=== PATIENT | male | born 1960 | race African-American/Black ===

== ENCOUNTER 2016-06-09 20:46 | Emergency (ER) | payer MEDICARE ==
[2016-06-09 20:57] VITALS: BP 157/83; PULSE 94; TEMP 98; BMI 37.9
[2016-06-09] MEDS ORDERED: METHYLPREDNISOLONE 125 MG/2 ML VIAL IM ONE (21:05)
[2016-06-09] MEDS ORDERED: ALBUTEROL 0.083% 3 ML NEB NEB ONE (21:06)
[2016-06-09] MEDS ORDERED: Albuterol/Ipratropium Neb 3 ML NEB NEB ONE (21:06)
[2016-06-09] MEDS ORDERED: ALBUTEROL 6.7 GM MDI INH ONE (21:06)
--- NOTE | 2016-06-09 21:22 | EDPRACDOC ---
- General Information Chief Complaint: Adult Asthma Stated Complaint: DIFFICULTY BREATHING Time Seen by Provider: 06/09/16 20:59 Information Source: Patient Mode Of Arrival: Car Home Medications: Home Medications Diltiazem HCl [Diltiazem ER] 120 mg PO DAILY 03/20/16 Insulin Glargine [Lantus Pen] 12 units SQ HS 03/20/16 Lisinopril [Prinivil] 5 mg PO DAILY 03/20/16 Metoprolol Tartrate [Lopressor] 25 mg PO BID 03/20/16 Albuterol Sulfate Nebs [Proventil, Ventolin] 3 ml NEB Q4 #60 nebu 06/09/16 Albuterol Sulfate [Ventolin Hfa] 2 puff INH Q6H PRN #1 hfa.aer.ad 06/09/16 Azithromycin [Zithromax] 250 mg PO DAILY #6 tablet 06/09/16 Prednisone [Sterapred 5 mg/6 day Uni-Pack] 21 tab PO DIR #1 pack 06/09/16 Allergies/Adverse Reactions: Allergies Allergy/AdvReac Type Severity Reaction Status Date / Time No Known Allergies Allergy Unverified 06/09/16 20:57 - History of Present Illness Onset: SEVERAL DAYS HPI: PT PRESENTS DUE TO SHOB AND WHEEZING. PT HAS PMH OF COPD AND ASTHMA. Shortness of Breath: Moderate Relevant History: Reports: Asthma, COPD Cough: Reports: Non-productive Rhinorrhea: Reports: Clear Ear Symptoms: Reports: None SOB Worsens with: Reports: Exertion, Movement, Coughing, Lying Flat, Position SOB Improves with: Reports: Sitting up, Rest, Position Recently treated infections:: Denies: Otitis media, Pneumonia, URI ED Past Medical History - History Reviewed Yes Nurses notes reviewed and agree except as marked - Patient Medical History Cardiac History: Reports: Hypertension Respiratory History: Reports: Asthma, COPD Psychological History: Reports: Depression Systemic History: Reports: Diabetes - Social Medical History Smoking Status: Never smoker EDM Review of Systems - Review of Systems ROS Negative Except as Marked: Yes All systems reviewed and were negative except as marked - Physical Exam Constitutional: Alert Oriented to: Time, Person, Place Last recorded Vital Signs: Last Vital Signs Temp 98 F 06/09/16 20:52 Pulse 94 06/09/16 20:52 Resp 24 06/09/16 21:05 BP 157/83 06/09/16 20:52 Pulse Ox 98 06/09/16 20:52 Oxygen Pulse Oxygen Saturation 98 O2 Device Oxygen Flow Rate Fraction of Inspired Oxygen ( FIO2) - HEENT Head: Normal ( normocephalic) Eye Exam: Normal (PERRL, EOMI, Sclera white) Oropharynx: Normal (Pharynx:Moist without exudate,Gums-no swelling) Tympanic Membrane: Normal Nose: No Symptoms Reported (septum midline) Neck: Normal (FROM, trachea at midline) - Respiratory/Cardiovascular Respiratory: Tachypnea, Wheezes Cardiovascular: Normal (RRR without murmur, gallop or rub) - GI Auscultation: Normal (NABS) Palpation: Normal (Soft,No rebound or guarding, non distended) Tenderness: Non tender Jarrett's Sign: Negative Rectal Exam: Deferred - Musculoskeletal Back: Normal (Non-Tender) Extremities: Normal (Normal tone, Pulses 2+ No cyanosis or edema, FROM) - Integumentary Skin: Normal, Warm, Dry Lymphatics: Normal (no adenopathy) - Neurologic Memory Impaired: Normal Motor Function: Normal (Normal tone, Pulses 2+ No cyanosis or edema, FROM) Cranial Nerve: Normal (CN II-X11 intact sensation, strength 5/5) Cerebellar: Normal Mood Description: Normal Perception: Normal ED SOB MDM - Differential Diagnosis Differential Diagnosis: Other - Departure Disposition: Home Condition: Stable Final Diagnosis: COPD (chronic obstructive pulmonary disease) with acute bronchitis Instructions: How to Use a Metered-Dose Inhaler (ED), COPD (Chronic Obstructive Pulmonary Disease) (ED), Chronic Bronchitis (ED), How Your Lungs Work (ED) Education/Counseling Given To: Patient Education/Counseling Given Regarding: Diagnosis, Treatment, Prognosis, Follow Up Referrals: Bobby Culp MD [Staff Physician] - One Week Prescriptions: Continue Albuterol Sulfate [Ventolin Hfa] 2 puff INH Q6H PRN #1 hfa.aer.ad PRN Reason: SHORTNESS OF BREATH Albuterol Sulfate Nebs [Proventil, Ventolin] 3 ml NEB Q4 #60 nebu Azithromycin [Zithromax] 250 mg PO DAILY #6 tablet Prednisone [Sterapred 5 mg/6 day Uni-Pack] 21 tab PO DIR #1 pack No Action Metoprolol Tartrate [Lopressor] 25 mg PO BID Lisinopril [Prinivil] 5 mg PO DAILY Insulin Glargine [Lantus Pen] 12 units SQ HS Diltiazem HCl [Diltiazem ER] 120 mg PO DAILY Additional Instructions: INCREASE FLUID INTAKE. FOLLOW UP WITH PRIMARY CARE PROVIDER NEXT WEEK. TAKE ALL ANTIBIOTICS PRESCRIBED. RETURN TO THE ED FOR WORSENING SYMPTOMS OR CONCERNS.
--- NOTE | 2016-06-09 21:45 | DIRPT ---
CLINICAL DATA: Patient with dry cough and wheezing for 2 weeks. EXAM: CHEST 2 VIEW COMPARISON: Chest radiograph 03/20/2016 FINDINGS: Stable enlarged cardiac and mediastinal contours. No consolidative pulmonary opacities. No pleural effusion or pneumothorax. Regional skeleton is unremarkable. IMPRESSION: No acute cardiopulmonary process. Electronically Signed By: [place] M.D. On: 06/09/2016 21:42
[2016-06-09] MEDS: ALBUTEROL 0.083% 3 ML NEB NEB SCH ×2 (21:59→22:01)
[2016-06-09] MEDS ORDERED: AZITHROMYCIN 250 MG TAB PO ONE (22:38)
== END 2016-06-09 23:20 | disposition home or self-care (01) ==
LOC: ED 20:46
DX: J44.0 Chronic obstructive pulmonary disease with (acute) lower respiratory infection (principal); J20.9 Acute bronchitis, unspecified
CPT/HCPCS: 71020; 94640; 96372; 99283; A9270; J2930; J7620; J3490